=== PATIENT | female | born 1980 | race Caucasian/White ===

== ENCOUNTER 2018-06-19 13:00 | Inpatient (IN) | payer OTHER ==
[~2018-06-19 13:00] MED LIST: Ampicillin 2 GM in Sodium Chloride 0.9% 100 ML IV ONE; Lactated Ringers 1,000 ML IV SCH
[2018-06-19] MEDS ORDERED: Oxytocin 10 Units/1 ML SDV IM ONE (15:26)
[2018-06-19] MEDS: Ibuprofen 600 MG Tab PO PRN (16:05)
[2018-06-19] MEDS ORDERED: Ampicillin 1 GM in Sodium Chloride 0.9% 50 ML IV SCH (17:00)
[2018-06-20] MEDS: Ibuprofen 600 MG Tab PO PRN ×2 (05:29→18:01)
[2018-06-20 09:10] VITALS: BP 108/72
--- NOTE | 2018-06-20 09:19 | PN ---
DATE SEEN: 06/20/2018 SUBJECTIVE: Negrita Ford is a 38-year-old multigravida female, one day . Up, ambulating, and doing well. Minimal perineal discomfort. Lochia and flow have been satisfactory. The pain is minimal. OBJECTIVE: U-5 tone satisfactory. Perineum intact. LABORATORY DATA: Hemoglobin 11.9 grams percent and hematocrit 34.0. ASSESSMENT: day #1, no problems. PLAN: Discharge later today, observation of baby in the interim, complementary care and well being. vitamin, analgesics, and appropriate care. /[id number] SUE/DORAIN
--- NOTE | 2018-06-20 10:39 | HP ---
ADMISSION DATE: 06/19/2018 Negrita Ford is a 38-year-old multigravida female, admitted to [facility] in active labor. She began markus at about 0900 hours. No bleeding. No loss of fluid. Baby has been active. 41 weeks 2 days' gestation, accurate dates. Last seen last week, well being established. Encouraged NST and biophysical profile. Declined updated testing planned for Wednesday. Upon admission, group B rectovaginal culture positive, intravenous line was placed. The first dose of ampicillin 2 g was instituted. Once intravenous fluids were in place, she was examined. She was found to be in anterior rim. First stage of labor progressed successfully. She had the urge to push. She was found to be completely dilated. Over the course of about 15 minutes, good maternal effort, delivered in ADEOLA presentation without episiotomy. Perineum is protected. Mouth and oropharynx were suctioned. Nuchal cords snug but reducible, x1 reduced. The child delivered without incident in Kindra position. Mouth and oropharynx were suctioned again aggressively, warmed, placed on mom's tummy for routine resuscitation. Nursing staff in attendance. Heart rate remained in the 150s during maternal warming. Once cord had quit pulsating, was doubly clamped, dad cut the cord in attendance. Three-cord vessel was identified. Brief time was 10 minutes, third stage of labor. Placenta delivered intact, Sampson. Uterine tone was maintained by massage and intramuscular Pitocin. The perineum was inspected. A small first-degree intravaginal tear. Pressure applied. Bleeding persisted, was closed with a single 3-0 Vicryl suture. Blood loss was 150 mL. Intravenous fluids will be maintained. /[id number] SUE/DORIAN
== END 2018-06-20 20:00 | disposition home or self-care (01) | DRG 807 ==
LOC: FB.OB 13:00 → FB.OBCHECK 13:00 → FB.OB 13:02
PROVIDERS: ADMIT Family Medicine; ATTEND Family Medicine
PROC: 10E0XZZ Delivery of Products of Conception, External Approach (ICD-10-PCS; principal; 2018-06-19)
PROC: 0HQ9XZZ Repair Perineum Skin, External Approach (ICD-10-PCS; 2018-06-19)
DX: O69.81X0 Labor and delivery complicated by cord around neck, without compression, not applicable or unspecified (principal); Z37.0 Single live birth; O99.824 Streptococcus B carrier state complicating childbirth; Z3A.41 41 weeks gestation of pregnancy; O71.89 Other specified obstetric trauma
CPT/HCPCS: 36415; 59409; 85014; 85018; A9270-GY; J0290; J2590; J7030; J7120